=== PATIENT | female | born 1990 | race Caucasian/White ===

== ENCOUNTER 2019-04-17 07:30 | Day surgery (SDC) | payer BC ==
[2019-04-16 10:35] LABS: BLOOD UREA NITROGEN,BUN 8 mg/dL (7.0-18.0); CARBON DIOXIDE,CO2 28.4 mmol/L (21.0-32.0); CHLORIDE,CL 101 mmol/L (98-107); GLUCOSE RANDOM 103 mg/dL (74-106); SODIUM,NA 137 mmol/L (136-145)
[~2019-04-17 07:30] MED LIST: Sodium Chloride 0.9% 10 ML SDV IV PRN; Sodium Chloride 0.9% 10 ML Syringe FLUSH PRN; Sodium Chloride 0.9% 2.5 ML Syringe FLUSH PRN; ceFAZolin 2 GM in Premix Bag 1 BAG IV ONE
[2019-04-17] MEDS ORDERED: Midazolam 1 MG/ML 2 ML SDV ONE (07:37)
[2019-04-17] MEDS ORDERED: Rocuronium 100 MG/10 ML Syringe ONE (07:37)
[2019-04-17] MEDS ORDERED: Propofol 200 MG/20 ML SDV ONE (07:37)
[2019-04-17] MEDS ORDERED: fentaNYL 250 MCG/5 ML SDV ONE (07:37)
[2019-04-17] MEDS ORDERED: Ondansetron 4 MG/2 ML SDV ONE (07:37)
[2019-04-17] MEDS: Lactated Ringers 1,000 ML IV SCH ×3 (07:50→22:15)
--- NOTE | 2019-04-17 08:05 | PCM.PREANE ---
Preanesthetic Assessment - Anesthesia/Transfusion/Family Hx Anesthesia History: No Prior Anesthesia Family History of Anesthesia Reaction: No Transfusion History: No Prior Transfusion(s) - Review of Systems General: No Symptoms Pulmonary: No Symptoms Cardiovascular: No Symptoms Gastrointestinal: No Symptoms Neurological: No Symptoms Other: Reports: None - Physical Assessment NPO Status Date: 04/16/19 NPO Status Time: 21:00 Vital Signs: Last Vital Signs Temp 97.5 F 04/17/19 07:36 Pulse 91 04/17/19 07:36 Resp 20 04/17/19 07:36 BP 115/79 04/17/19 07:36 Pulse Ox 99 04/17/19 07:36 Height: 5 ft 9 in Weight: 92.079 kg ASA Class: 2 Mental Status: Alert & Oriented x3 Airway Class: Mallampati = 2 Dentition: Reports: Normal Dentition ROM/Head Extension: Full Lungs: Clear to Auscultation, Normal Respiratory Effort Cardiovascular: Regular Rate, Regular Rhythm - Lab Values: Laboratory Last Values WBC 9.41 K/uL (4.0-11.0) 04/16/19 09:52 RBC 4.76 M/uL (4.30-5.90) 04/16/19 09:52 Hgb 13.6 g/dL (12.0-16.0) 04/16/19 09:52 Hct 40.3 % (36.0-46.0) 04/16/19 09:52 MCV 84.7 fL (80.0-98.0) 04/16/19 09:52 MCH 28.6 pg (27.0-32.0) 04/16/19 09:52 MCHC 33.7 g/dL (31.0-37.0) 04/16/19 09:52 RDW Std Deviation 41.7 fl (28.0-62.0) 04/16/19 09:52 RDW Coeff of Neli 14 % (11.0-15.0) 04/16/19 09:52 Plt Count 290 K/uL (150-400) 04/16/19 09:52 MPV 9.40 fL (7.40-12.00) 04/16/19 09:52 Nucleated RBC % 0.0 /100WBC 04/16/19 09:52 Nucleated RBCs # 0 K/uL 04/16/19 09:52 Sodium 137 mmol/L (136-145) 04/16/19 09:52 Potassium 4.0 mmol/L (3.5-5.1) 04/16/19 09:52 Chloride 101 mmol/L (98-107) 04/16/19 09:52 Carbon Dioxide 28.4 mmol/L (21.0-32.0) 04/16/19 09:52 BUN 8 mg/dL (7.0-18.0) 04/16/19 09:52 Creatinine 0.8 mg/dL (0.6-1.0) 04/16/19 09:52 Est Cr Clr Drug Dosing 109.41 mL/min 04/16/19 09:52 Estimated GFR (MDRD) > 60.0 ml/min 04/16/19 09:52 Glucose 103 mg/dL (74-106) 04/16/19 09:52 Calcium 9.5 mg/dL (8.5-10.1) 04/16/19 09:52 HCG, Qual NEGATIVE (NEG) 04/16/19 09:52 Blood Type O POSITIVE 04/16/19 09:52 Antibody Screen NEGATIVE 04/16/19 09:52 - Allergies Allergies/Adverse Reactions: Allergies Allergy/AdvReac Type Severity Reaction Status Date / Time No Known Allergies Allergy Verified 04/11/19 10:42 - Blood Blood Available: No - Anesthesia Plan Pre-Op Medication Ordered: None - Acknowledgements Anesthesia Type Planned: General Anesthesia Pt an Appropriate Candidate for the Planned Anesthesia: Yes Alternatives and Risks of Anesthesia Discussed w Pt/Guardian: Yes Pt/Guardian Understands and Agrees with Anesthesia Plan: Yes PreAnesthesia Questionnaire - Past Health History Medical/Surgical History: Denies Medical/Surgical History HEENT History: Reports: None Cardiovascular History: Reports: None Respiratory History: Reports: None Gastrointestinal History: Reports: None Genitourinary History: Reports: None 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: Dysfunctional Uterine Bleeding, Musculoskeletal History: Reports: None Neurological History: Reports: None Psychiatric History: Reports: Depression Endocrine/Metabolic History: Reports: Obesity/BMI 30+ Hematologic History: Reports: None Immunologic History: Reports: None Oncologic (Cancer) History: Reports: None Dermatologic History: Reports: None - Infectious Disease History Infectious Disease History: Reports: Chicken Pox - Past Surgical History Head Surgeries/Procedures: Reports: None HEENT Surgical History: Reports: None Cardiovascular Surgical History: Reports: None Respiratory Surgical History: Reports: None GI Surgical History: Reports: None Female Surgical History: Reports: None Neurological Surgical History: Reports: None Musculoskeletal Surgical History: Reports: None Oncologic Surgical History: Reports: None Dermatological Surgical History: Reports: None - SUBSTANCE USE Smoking Status *Q: Never Smoker - HOME MEDS Home Medications: Home Meds Etonogestrel [Nexplanon] 1 device IMPLANT ONETIME 04/11/19 [History] Iron 27 mg PO DAILY 04/11/19 [History] Sertraline HCl 2,000 mg PO DAILY 04/11/19 [History] - CURRENT (IN HOUSE) MEDS Current Meds: Current Medications Lactated Ringer's (Ringers, Lactated) 1,000 mls @ 125 mls/hr IV ASDIRECTED YULIYA Last Admin: 04/17/19 07:50 Dose: 125 mls/hr Sodium Chloride (Saline Flush) 10 ml FLUSH ASDIRECTED PRN PRN Reason: Keep Vein Open Sodium Chloride (Saline Flush) 2.5 ml FLUSH ASDIRECTED PRN PRN Reason: Keep Vein Open Sodium Chloride (Normal Saline) 10 ml IV ASDIRECTED PRN PRN Reason: IV Use Discontinued Medications Fentanyl (Sublimaze) Confirm Administered Dose 250 mcg .ROUTE .STK-MED ONE Stop: 04/17/19 07:38 Cefazolin Sodium/Dextrose 2 gm (/ Premix) 50 mls @ 100 mls/hr IV ONETIME ONE Stop: 04/16/19 09:42 Lidocaine HCl (Xylocaine-Mpf 1%) Confirm Administered Dose 5 ml .ROUTE .STK-MED ONE Stop: 04/17/19 07:38 Midazolam HCl (Versed 1 Mg/Ml) Confirm Administered Dose 2 mg .ROUTE .STK-MED ONE Stop: 04/17/19 07:38 Ondansetron HCl (Zofran) Confirm Administered Dose 4 mg .ROUTE .STK-MED ONE Stop: 04/17/19 07:38 Propofol (Diprivan 20 Ml) Confirm Administered Dose 200 mg .ROUTE .STK-MED ONE Stop: 04/17/19 07:38 Rocuronium [place] (Zemuron) Confirm Administered Dose 100 mg .ROUTE .STK-MED ONE Stop: 04/17/19 07:38
[2019-04-17] MEDS ORDERED: Ondansetron 4 MG/2 ML SDV IVPUSH ONE (08:40)
[2019-04-17] MEDS ORDERED: Sodium Chloride 0.9% 20 ML ONE (08:43)
[2019-04-17] MEDS ORDERED: Dexamethasone 4 MG/ML 5 ML MDV ONE (08:50)
[2019-04-17] MEDS ORDERED: Fluorescein 5 ML Vial ONE (09:00)
[2019-04-17] MEDS ORDERED: Sugammadex Sodium 200 MG/2 ML VIAL ONE (09:12)
[2019-04-17] MEDS ORDERED: Promethazine 25 MG/ML SDV IM PRN (09:19)
[2019-04-17] MEDS ORDERED: Ketorolac 30 MG/ML SDV IVPUSH PRN (09:19)
[2019-04-17] MEDS ORDERED: Acetaminophen/oxyCODONE 325-5 MG Tab PO PRN ×2 (09:19)
[2019-04-17] MEDS ORDERED: Ketorolac 30 MG/ML SDV IVPUSH ONE (09:19)
--- NOTE | 2019-04-17 09:23 | PCM.OPNOTE ---
- General Post-Op/Procedure Note Date of Surgery/Procedure: 04/17/19 Operative Procedure(s): TVH, Cysroscopy and removal og Exponan. Pre Op Diagnosis: Bleeding Post-Op Diagnosis: Same Anesthesia Technique: General ET Tube Primary Surgeon: Brooks Ewing EBL in mLs: 100 Complications: None Condition: Good
[2019-04-17] MEDS: fentaNYL 100 MCG/2 ML SDV IVPUSH PRN ×2 (09:34→09:44)
[2019-04-17] MEDS ORDERED: Acetaminophen 1,000 MG in Premix Bag 1 BAG IV ONE (09:47)
[2019-04-17] MEDS: HYDROmorphone 2 MG/ML Syringe IVPUSH ONE ×2 (10:02→10:08)
--- NOTE | 2019-04-17 10:28 | PCM.POSTAN ---
POST ANESTHESIA ASSESSMENT - MENTAL STATUS Mental Status: Alert, Oriented - VITAL SIGNS Vital Signs: Last Vital Signs Temp 97.3 F 04/17/19 09:25 Pulse 80 04/17/19 10:14 Resp 13 04/17/19 10:14 BP 104/57 L 04/17/19 10:14 Pulse Ox 100 04/17/19 10:14 - RESPIRATORY Respiratory Status: Respiratory Rate WNL, Airway Patent, O2 Saturation Stable - CARDIOVASCULAR CV Status: Pulse Rate WNL, Blood Pressure Stable - GASTROINTESTINAL GI Status: No Symptoms - POST OP HYDRATION Hydration Status: Adequate & Stable
[2019-04-17] MEDS: Morphine 4 MG/ML Syringe IVPUSH PRN ×2 (11:20→15:03)
[2019-04-17] MEDS: Ondansetron 4 MG/2 ML SDV IVPUSH PRN ×2 (12:07→22:45)
--- NOTE | 2019-04-17 13:42 | OR ---
SURGEON: Brooks Ewing MD DATE OF PROCEDURE: PREOPERATIVE DIAGNOSES: Menometrorrhagia, dysmenorrhea. POSTOPERATIVE DIAGNOSES: Menometrorrhagia, dysmenorrhea. OPERATIONS PERFORMED: Total vaginal hysterectomy, bilateral vaginal salpingectomy preserving both ovaries, cystoscopy, and removal of Nexplanon. PRIMARY SURGEON: Brooks Ewing MD. SNOW SHOVELER: OR tech. ANESTHESIA: General endotracheal intubation. ESTIMATED BLOOD LOSS: 100 mL. COMPLICATIONS: None. FINDINGS: Uterus about 8-week size. Nexplanon in her left arm. INDICATIONS FOR SURGERY: Josephine to refer to the admit note. PROCEDURE IN DETAIL: The patient was brought to the OR, properly identified, and after adequate level of general anesthesia, the patient was placed in lithotomy, prepped and draped in sterile fashion as usual. A short weighted speculum was placed in the vagina and straight catheter was used to empty the bladder. Single-tooth tenaculum applied to the cervix and a circular incision in the vaginal mucosa around the cervix utilizing the electrocautery is done. The posterior cul-de-sac was entered with the Lopez scissors and the peritoneum and the vagina tagged with 2-0 Vicryl. Then, the short weighted speculum was placed with an extended long weighted speculum and then the uterosacral ligament identified from both sides, clamped with a curved Zeppelin, transected, and suture-ligated with 2-0 Vicryl pop-off in a Ashli fashion and held for further identification. The same thing done with the cardinal ligament and then the cervicovesical space was entered anteriorly, pushing the bladder completely away from the operative field. The broad ligament was clamped with a curved Zeppelin from both sides and transected, suture-ligated with 2-0 Vicryl pop-off. The uterine vessel was suture-ligated at this step. Next, the uterus was delivered posteriorly and the superior pedicle was clamped with 90 degree Zeppelin from both sides. The tubes included with the specimen, the ovaries preserved, and the superior pedicle tied twice with a free tie on both sides. Inspection of the operative field showed no oozing, no bleeding, and the uterosacral ligament and cardinal ligament anchored to the vagina at 3 and 9 o'clock for added vaginal support. We proceeded to close the vaginal cuff with 2-0 Vicryl interrupted [id number] suture. While we were doing that, we asked the anesthesiologist to give the patient 5 mL of fluorescein and then cystoscopy was performed. The bladder was intact. Both ureteric orifices were seen with the dye coming out from both of them. Thus, patency of both ureters verified. Satisfied with this procedure, the vaginal part of the surgery ended and then attention paid to the left arm. The area where the Nexplanon is identified and sterilized with Betadine and then small incision was done. Mosquito clamp was used to dissect the subcutaneous tissue, and then the Nexplanon is identified and removed without any problem. The small incision was closed with a Steri-Strip. After this, the procedure ended. The instrument and sponge count was correct. The patient tolerated the procedure well and went to recovery room in stable general condition. DONNA TAYLOR /[id number]
[2019-04-18 04:34] VITALS: BP 114/71; PULSE 88
[2019-04-18 06:48] LABS: BLOOD UREA NITROGEN,BUN 8 mg/dL (7.0-18.0); CARBON DIOXIDE,CO2 27.6 mmol/L (21.0-32.0); CHLORIDE,CL 105 mmol/L (98-107); GLUCOSE RANDOM 92 mg/dL (74-106); POTASSIUM,K 3.5 mmol/L (3.5-5.1); SODIUM,NA 142 mmol/L (136-145)
--- NOTE | 2019-04-18 07:04 | PCM48HPAN ---
Post Anesthesia Note - EVALUATION WITHIN 48HRS OF ANESTHETIC Vital Signs in Normal Range: Yes Patient Participated in Evaluation: Yes Respiratory Function Stable: Yes Airway Patent: Yes Cardiovascular Function Stable: Yes Hydration Status Stable: Yes Pain Control Satisfactory: Yes Nausea and Vomiting Control Satisfactory: Yes Mental Status Recovered: Yes Vital Signs: Last Vital Signs Temp 99.2 F 04/18/19 04:32 Pulse 88 04/18/19 04:32 Resp 14 04/18/19 04:32 BP 114/71 04/18/19 04:32 Pulse Ox 96 04/18/19 04:32
--- NOTE | 2019-04-18 08:24 | PCM.SURGPN ---
- General Info Date of Service: 04/18/19 POD#: 1 Functional Status: Reports: Pain Controlled - Review of Systems General: Reports: No Symptoms HEENT: Reports: No Symptoms Pulmonary: Reports: No Symptoms Cardiovascular: Reports: No Symptoms Gastrointestinal: Reports: No Symptoms Genitourinary: Reports: No Symptoms Musculoskeletal: Reports: No Symptoms Skin: Reports: No Symptoms Neurological: Reports: No Symptoms Psychiatric: Reports: No Symptoms - Patient Data Vitals - Most Recent: Last Vital Signs Temp 37.3 C 04/18/19 04:32 Pulse 88 04/18/19 04:32 Resp 14 04/18/19 04:32 BP 114/71 04/18/19 04:32 Pulse Ox 96 04/18/19 04:32 Weight - Most Recent: 92.079 kg I&O - Last 24 Hours: Intake & Output 04/17/19 04/18/19 04/18/19 22:59 06:59 14:59 Intake Total 1000 978 Output Total 1600 Balance 1000 -622 Lab Results Last 24 Hrs: Laboratory Results - last 24 hr 04/18/19 04/18/19 Range/Units 05:55 05:55 WBC 13.03 H (4.0-11.0) K/uL RBC 4.06 L (4.30-5.90) M/uL Hgb 11.3 L (12.0-16.0) g/dL Hct 34.6 L (36.0-46.0) % MCV 85.2 (80.0-98.0) fL MCH 27.8 (27.0-32.0) pg MCHC 32.7 (31.0-37.0) g/dL RDW Std Deviation 42.5 (28.0-62.0) fl RDW Coeff of Neli 14 (11.0-15.0) % Plt Count 261 (150-400) K/uL MPV 9.70 (7.40-12.00) fL Neut % (Auto) 73.3 (48.0-80.0) % Lymph % (Auto) 18.3 (16.0-40.0) % [place] % (Auto) 8.1 (0.0-15.0) % Eos % (Auto) 0.2 (0.0-7.0) % Baso % (Auto) 0.1 (0.0-1.5) % Neut # (Auto) 9.6 H (1.4-5.7) K/uL Lymph # (Auto) 2.4 (0.6-2.4) K/uL [place] # (Auto) 1.1 H (0.0-0.8) K/uL Eos # (Auto) 0.0 (0.0-0.7) K/uL Baso # (Auto) 0.0 (0.0-0.1) K/uL Nucleated RBC % 0.0 /100WBC Nucleated RBCs # 0 K/uL Sodium 142 (136-145) mmol/L Potassium 3.5 (3.5-5.1) mmol/L Chloride 105 (98-107) mmol/L Carbon Dioxide 27.6 (21.0-32.0) mmol/L BUN 8 (7.0-18.0) mg/dL Creatinine 0.7 (0.6-1.0) mg/dL Est Cr Clr Drug Dosing 125.04 mL/min Estimated GFR (MDRD) > 60.0 ml/min Glucose 92 (74-106) mg/dL Calcium 8.4 L (8.5-10.1) mg/dL Med Orders - Current: Current Medications Fentanyl (Sublimaze) 50 mcg IVPUSH Q5M PRN PRN Reason: Pain (severe 7-10) Stop: 04/18/19 08:41 Last Admin: 04/17/19 09:44 Dose: 50 mcg Lactated Ringer's (Ringers, Lactated) 1,000 mls @ 125 mls/hr IV [facility]RECTED [facility] Last Admin: 04/17/19 22:15 Dose: 125 mls/hr Ketorolac Tromethamine (Toradol) 30 mg IVPUSH Q6H PRN PRN Reason: Pain (severe 7-10) Stop: 04/22/19 09:19 Last Admin: 04/17/19 22:32 Dose: 30 mg Morphine Sulfate (Morphine) 4 mg IVPUSH Q2H PRN PRN Reason: Pain (severe 7-10) Last Admin: 04/17/19 15:03 Dose: 4 mg Ondansetron HCl (Zofran) 4 mg IVPUSH Q6H PRN PRN Reason: Nausea/Vomiting Last Admin: 04/17/19 22:45 Dose: 4 mg Oxycodone/Acetaminophen (Percocet 325-5 Mg) 1 tab PO Q4H PRN PRN Reason: Pain (moderate 4-6) Oxycodone/Acetaminophen (Percocet 325-5 Mg) 2 tab PO Q4H PRN PRN Reason: Pain (moderate 4-6) Promethazine HCl (Phenergan) 25 mg IM Q6H PRN PRN Reason: Nausea/Vomiting Sodium Chloride (Saline Flush) 10 ml FLUSH ASDIRECTED PRN PRN Reason: Keep Vein Open Sodium Chloride (Saline Flush) 2.5 ml FLUSH ASDIRECTED PRN PRN Reason: Keep Vein Open Last Admin: 04/17/19 22:10 Dose: 2.5 ml Sodium Chloride (Normal Saline) 10 ml IV ASDIRECTED PRN PRN Reason: IV Use Discontinued Medications Dexamethasone (Dexamethasone) Confirm Administered Dose 20 mg .ROUTE .STK-MED ONE Stop: 04/17/19 08:51 Fentanyl (Sublimaze) Confirm Administered Dose 250 mcg .ROUTE .STK-MED ONE Stop: 04/17/19 07:38 Fluorescein Sodium ([place]-Fluor) Confirm Administered Dose 5 ml .ROUTE .STK-MED ONE Stop: 04/17/19 09:01 Hydromorphone HCl (Dilaudid) 2 mg IVPUSH ONETIME ONE Stop: 04/17/19 09:48 Last Admin: 04/17/19 10:08 Dose: 0.4 mg Cefazolin Sodium/Dextrose 2 gm (/ Premix) 50 mls @ 100 mls/hr IV ONETIME ONE Stop: 04/16/19 09:42 Sodium Chloride (Normal Saline) Confirm Administered Dose 20 mls @ as directed .ROUTE .STK-MED ONE Stop: 04/17/19 08:44 Acetaminophen 1,000 mg/ Premix 100 mls @ 400 mls/hr IV NOW ONE Stop: 04/17/19 10:01 Last Admin: 04/17/19 09:57 Dose: 400 mls/hr Acetaminophen (Ofirmev) Confirm Administered Dose 100 mls @ as directed .ROUTE .STK-MED ONE Stop: 04/17/19 09:55 Ketorolac Tromethamine (Toradol) 30 mg IVPUSH ONETIME ONE Stop: 04/17/19 09:20 Last Admin: 04/17/19 09:39 Dose: 30 mg Lidocaine HCl (Xylocaine-Mpf 1%) Confirm Administered Dose 5 ml .ROUTE .STK-MED ONE Stop: 04/17/19 07:38 Midazolam HCl (Versed 1 Mg/Ml) Confirm Administered Dose 2 mg .ROUTE .STK-MED ONE Stop: 04/17/19 07:38 Ondansetron HCl (Zofran) Confirm Administered Dose 4 mg .ROUTE .STK-MED ONE Stop: 04/17/19 07:38 Ondansetron HCl (Zofran) 4 mg IVPUSH ONETIME ONE Stop: 04/17/19 08:41 Propofol (Diprivan 20 Ml) Confirm Administered Dose 200 mg .ROUTE .STK-MED ONE Stop: 04/17/19 07:38 Rocuronium [place] (Zemuron) Confirm Administered Dose 100 mg .ROUTE .STK-MED ONE Stop: 04/17/19 07:38 Sugammadex Sodium ([place]) Confirm Administered Dose 200 mg .ROUTE .STK-MED ONE Stop: 04/17/19 09:13 - Exam Wound/Incisions: Healing Well General: Alert, Oriented HEENT: Pupils Equal Neck: Supple Lungs: Clear to Auscultation, Normal Respiratory Effort Cardiovascular: Regular Rate, Regular Rhythm GI/Abdominal Exam: Normal Bowel Sounds, Soft, Non-Tender, No Organomegaly, No Distention, No Abnormal Bruit, No Mass, Pelvis Stable Extremities: Normal Inspection, Normal Range of Motion, Non-Tender, No Pedal Edema, Normal Capillary Refill Skin: Warm, Dry, Intact Neurological: No New Focal Deficit Psy/Mental Status: Alert, Normal Affect, Normal Mood Sepsis Event Note - Evaluation Sepsis Screening Result: No Definite Risk - Focused Exam Vital Signs: Vital Signs Temp Pulse Resp BP Pulse Ox 04/18/19 04:32 37.3 C 88 14 114/71 96 04/18/19 00:42 37.0 C 90 14 117/64 94 L 04/17/19 23:51 37.4 C 04/17/19 23:00 86 115/61 94 L 04/17/19 22:41 37.5 C 86 12 121/78 94 L Date Exam was Performed: 04/18/19 Time Exam was Performed: 08:22 - Problem List Review Problem List Initiated/Reviewed/Updated: Yes - My Orders Last 24 Hours: Active Orders 24 hr Category Date Time Status Patient Status [ADT] Routine ADT 04/17/19 09:19 Active Antiembolic Devices [RC] PER UNIT ROUTINE Care 04/17/19 09:20 Active Notify Provider Vital Signs [RC] ASDIRECTED Care 04/17/19 09:19 Active Oxygen Therapy [RC] ASDIRECTED Care 04/17/19 09:19 Active RT Incentive Spirometry [RC] Q2HWA Care 04/17/19 09:19 Active Up With Assistance [RC] PER UNIT ROUTINE Care 04/17/19 09:19 Active Up ad Deb [RC] PER UNIT ROUTINE Care 04/17/19 09:19 Active Regular Diet [DIET] Diet 04/17/19 Lunch Active Acetaminophen/oxyCODONE [Percocet 325-5 MG] Med 04/17/19 09:19 Active 1 tab PO Q4H PRN Acetaminophen/oxyCODONE [Percocet 325-5 MG] Med 04/17/19 09:19 Active 2 tab PO Q4H PRN Ketorolac [Toradol] Med 04/17/19 09:19 Active 30 mg IVPUSH Q6H PRN Morphine Med 04/17/19 09:19 Active 4 mg IVPUSH Q2H PRN Ondansetron [Zofran] Med 04/17/19 09:19 Active 4 mg IVPUSH Q6H PRN Promethazine [Phenergan] Med 04/17/19 09:19 Active 25 mg IM Q6H PRN fentaNYL [Sublimaze] Med 04/17/19 08:40 Active 50 mcg IVPUSH Q5M PRN Peripheral IV Discontinue [OM.PC] Routine Oth 04/17/19 09:19 Ordered Sequential Compression Device [OM.PC] Per Unit Routine Oth 04/17/19 09:19 Ordered Resuscitation Status Routine Resus Stat 04/17/19 09:19 Ordered Medication Orders Fentanyl (Sublimaze) 50 mcg IVPUSH Q5M PRN PRN Reason: Pain (severe 7-10) Stop: 04/18/19 08:41 Last Admin: 04/17/19 09:44 Dose: 50 mcg Admin: 04/17/19 09:34 Dose: 50 mcg Lactated Ringer's (Ringers, Lactated) 1,000 mls @ 125 mls/hr IV ASDIRECTED [facility] Last Admin: 04/17/19 22:15 Dose: 125 mls/hr Infusion: 04/17/19 19:04 Dose: 125 mls/hr Admin: 04/17/19 11:04 Dose: 125 mls/hr Infusion: 04/17/19 11:04 Dose: 125 mls/hr Admin: 04/17/19 07:50 Dose: 125 mls/hr Ketorolac Tromethamine (Toradol) 30 mg IVPUSH Q6H PRN PRN Reason: Pain (severe 7-10) Stop: 04/22/19 09:19 Last Admin: 04/17/19 22:32 Dose: 30 mg Morphine Sulfate (Morphine) 4 mg IVPUSH Q2H PRN PRN Reason: Pain (severe 7-10) Last Admin: 04/17/19 15:03 Dose: 4 mg Admin: 04/17/19 11:20 Dose: 4 mg Ondansetron HCl (Zofran) 4 mg IVPUSH Q6H PRN PRN Reason: Nausea/Vomiting Last Admin: 04/17/19 22:45 Dose: 4 mg Admin: 04/17/19 12:07 Dose: 4 mg Oxycodone/Acetaminophen (Percocet 325-5 Mg) 1 tab PO Q4H PRN PRN Reason: Pain (moderate 4-6) Oxycodone/Acetaminophen (Percocet 325-5 Mg) 2 tab PO Q4H PRN PRN Reason: Pain (moderate 4-6) Promethazine HCl (Phenergan) 25 mg IM Q6H PRN PRN Reason: Nausea/Vomiting Sodium Chloride (Saline Flush) 10 ml FLUSH ASDIRECTED PRN PRN Reason: Keep Vein Open Sodium Chloride (Saline Flush) 2.5 ml FLUSH ASDIRECTED PRN PRN Reason: Keep Vein Open Last Admin: 04/17/19 22:10 Dose: 2.5 ml Sodium Chloride (Normal Saline) 10 ml IV ASDIRECTED PRN PRN Reason: IV Use - Assessment Assessment (Free Text/Narrative):: Status post vaginal hysterectomy postoperative day #1 the patient doing well ambulatory voiding without any problem on regular diet minimum vaginal bleeding had lab work is within normal limits - Plan Plan (Free Text/Narrative):: Running to discharge the patient home today the postvasectomy instruction is given prescription for Narco 5/325 is given to the patient for postoperative pain there is no restriction on her diet she is to come to the office 1 week or day of her discharge for later postoperative examination
== END 2019-04-18 09:20 | disposition home or self-care (01) ==
LOC: MW.SDS 07:30 → MW.OB 09:56 → MW.SDS 04-18 09:20
PROVIDERS: ATTEND Obstetrics & Gynecology
DX: N72 Inflammatory disease of cervix uteri (principal); N87.9 Dysplasia of cervix uteri, unspecified; N83.8 Other noninflammatory disorders of ovary, fallopian tube and broad ligament; F32.9 Major depressive disorder, single episode, unspecified; E66.9 Obesity, unspecified; Z68.30 Body mass index [BMI] 30.0-30.9, adult; Z79.899 Other long term (current) drug therapy
CPT/HCPCS: 11982; 36415; 58262; 80048; 84703; 85025; 85027; 86850; 86900; 86901; 88307; J0131; J1100; J1170; J1885; J2001; J2250; J2270; J2405; J2704; J3010; J3490; J7120; 00944

== ENCOUNTER 2020-08-04 19:28 | Emergency (ER) | payer BC ==
--- NOTE | 2020-08-04 19:53 | EDM.PDOC ---
ED HPI GENERAL MEDICAL PROBLEM - General Chief Complaint: Gastrointestinal Problem Stated Complaint: UNABLE TO KEEP ANYONE DOWN Time Seen by Provider: 08/04/20 19:39 Source of Information: Reports: Patient History Limitations: Reports: No Limitations - History of Present Illness INITIAL COMMENTS - FREE TEXT/NARRATIVE: HISTORY AND PHYSICAL: History of present illness: Patient is a 30-year-old female who presents to the emergency room with complaints of nausea, vomiting and diarrhea since 7 AM this morning. She is concerned she may be dehydrated as she has not been able to keep any food or fluids down. Patient denies any fever, chills, headache, change in vision, syncope or near syncope. Denies any chest pain, back pain, shortness of breath or cough. Denies any abdominal pain, constipation or dysuria. No concern for or STI. Has not noted any blood in urine or stool. States no one else in the house has been ill. No recent travel. No recent antibiotic use. Review of systems: As per history of present illness and below otherwise all systems reviewed and negative. Past medical history: As per history of present illness and as reviewed below otherwise noncontributory. Surgical history: As per history of present illness and as reviewed below otherwise noncontributory. Social history: See social history for further information Family history: As per history of present illness and as reviewed below otherwise noncontributory. Physical exam: General: Well developed and well nourished. Alert and orientated x 3. Nontoxic in appearance and in no acute distress. Vital signs are stable and have been reviewed by me. Nursing notes were reviewed. HEENT: Atraumatic, normocephalic, pupils equal and reactive bilaterally, negative for conjunctival pallor or scleral icterus, mucous membranes moist, TMs normal bilaterally, throat clear, neck supple, nontender, trachea midline. No drooling or trismus noted. No meningeal signs. No hot potato voice noted. Lungs: Clear to auscultation bilaterally. No wheezes, rales, or rhonchi. Chest nontender. Normal work of breathing, no accessory muscles used. Heart: S1S2, regular rate and rhythm without overt murmur, gallops, or rubs. No JVD. No peripheral edema Abdomen: Soft, nondistended, nontender. Normoactive bowel sounds. Negative for masses or costovertebral tenderness. Skin: Intact, warm, dry. No lesions or rashes noted. Hematologic: No petechiae or purpra. Mucosa appropriate color and normal nail bed color and refill. Extremities: Atraumatic, moves all extremities per self without difficulty or deficits, negative for cords or calf pain. Neurovascular unremarkable. Neuro: Awake, alert, oriented. Cranial nerves II through XII unremarkable. Cerebellum unremarkable. Motor and sensory unremarkable throughout. Exam nonfocal. Psychiatric: Mood and affect are appropriate. Normal thought process. Answering questions appropriately. Notes: *This patient was seen and evaluated during the 2019 SARS-CoV-2 novel coronavirus pandemic period. Community viral transmission is ongoing at time of this encounter and the emergency department is operating under pandemic response procedures. I have talked with the patient about today's findings, in addition to providing specific details for plan of care. We discussed her slightly elevated WBC, she denies any abdominal pain or tenderness and feels improved after medications. PO challenge; patient was able to keep fluids down. Reassessment at the time of disposition demonstrates that the patient is in no acute distress. The patient is stable for discharge, counseling was provided and we discussed in great detail signs and symptoms that would prompt them to return to the Emergency Department. Medication, follow up and supportive care measures were reviewed and discussed. Voices understanding and is agreeable to plan of care. Denies any further questions or concerns at this time. Diagnostics: CBC, CMP, UA, urine , lipase Therapeutics: IV fluid, Zofran Prescription: Zofran Impression: Gastroenteritis Plan: 1. You were evaluated today on an emergent basis. Your symptoms are likely viral. Please try to drink small frequent sips of fluids to prevent dehydration. [place] diet and advance as tolerated (bananas, rice, toast, applesauce, etc..) 2. You can alternate Tylenol and ibuprofen as needed for pain and fever ma nagement. Zofran as needed for nausea management. 3. We encourage you to follow up with your primary care provider and/or recommended specialist in the next few days for re-evaluation and further care /management. 4. If your symptoms should worsen, new symptoms develop or any of the signs and symptoms we discussed should arise please return to the emergency room or call 911 (if needed). Definitive disposition and diagnosis as appropriate pending reevaluation and review of above. Onset: Today Location: Reports: Abdomen Abdomen Pain Score (Numeric/FACES): 8 - Related Data Allergies Allergy/AdvReac Type Severity Reaction Status Date / Time No Known Allergies Allergy Verified 08/04/20 20:40 Home Meds: Home Meds Sertraline HCl 2,000 mg PO DAILY 04/11/19 [History] Ondansetron [Zofran ODT] 4 mg PO Q6H PRN #8 tab.dis 08/04/20 [Rx] Past Medical History - Past Health History Medical/Surgical History: Denies Medical/Surgical History HEENT History: Reports: None Cardiovascular History: Reports: None Respiratory History: Reports: None Gastrointestinal History: Reports: None Genitourinary History: Reports: None [employer] History: Reports: Dysfunctional Uterine Bleeding, Musculoskeletal History: Reports: None Neurological History: Reports: None Psychiatric History: Reports: Depression Endocrine/Metabolic History: Reports: Obesity/BMI 30+ Hematologic History: Reports: None Immunologic History: Reports: None Oncologic (Cancer) History: Reports: None Dermatologic History: Reports: None - Infectious Disease History Infectious Disease History: Reports: Chicken Pox - Past Surgical History Head Surgeries/Procedures: Reports: None HEENT Surgical History: Reports: None Cardiovascular Surgical History: Reports: None Respiratory Surgical History: Reports: None GI Surgical History: Reports: None Female Surgical History: Reports: None Neurological Surgical History: Reports: None Musculoskeletal Surgical History: Reports: None Oncologic Surgical History: Reports: None Dermatological Surgical History: Reports: None Social & Family History - Family History HEENT: Reports: Glaucoma Respiratory: Reports: COPD, Sleep Apnea GI: Reports: Diverticulitis, Hepatitis Musculoskeletal: Reports: Arthritis Neurological: Reports: Migraines Endocrine/Metabolic: Reports: Diabetes, type II Oncologic: Reports: Breast, Prostate ED ROS GENERAL - Review of Systems Review Of Systems: Comprehensive ROS is negative, except as noted in HPI. ED EXAM, GI/ABD - Physical Exam Exam: See Below (See dictation) Course - Vital Signs Last Recorded V/S: Last Vital Signs Temp 97.6 F 08/04/20 19:55 Pulse 104 H 08/04/20 19:55 Resp 18 08/04/20 19:55 BP 114/76 08/04/20 19:55 Pulse Ox 98 08/04/20 19:55 - Orders/Labs/Meds Orders: Active Orders 24 hr Category Date Time Status Communication Order [RC] STAT Care 08/04/20 20:53 Ordered Sodium Chloride 0.9% [Normal Saline] 1,000 ml Med 08/04/20 19:56 Active IV STAT Medication Orders Sodium Chloride (Normal Saline) 1,000 mls @ 999 mls/hr IV STAT ONE Stop: 08/04/20 20:56 Last Admin: 08/04/20 20:06 Dose: 999 mls/hr Documented by: GALINDO Labs: Laboratory Tests 08/04/20 08/04/20 08/04/20 Range/Units 20:00 20:00 20:35 WBC 14.43 H (4.0-11.0) K/uL RBC 5.35 (4.30-5.90) M/uL Hgb 15.5 (12.0-16.0) g/dL Hct 45.7 (36.0-46.0) % MCV 85.4 (80.0-98.0) fL MCH 29.0 (27.0-32.0) pg MCHC 33.9 (31.0-37.0) g/dL RDW Std Deviation 42.2 (28.0-62.0) fl RDW Coeff of Neli 14 (11.0-15.0) % Plt Count 334 (150-400) K/uL MPV 9.90 (7.40-12.00) fL Neut % (Auto) 93.8 H (48.0-80.0) % Lymph % (Auto) 3.1 L (16.0-40.0) % [place] % (Auto) 2.8 (0.0-15.0) % Eos % (Auto) 0.2 (0.0-7.0) % Baso % (Auto) 0.1 (0.0-1.5) % Neut # (Auto) 13.5 H (1.4-5.7) K/uL Lymph # (Auto) 0.5 L (0.6-2.4) K/uL [place] # (Auto) 0.4 (0.0-0.8) K/uL Eos # (Auto) 0.0 (0.0-0.7) K/uL Baso # (Auto) 0.0 (0.0-0.1) K/uL Nucleated RBC % 0.0 /100WBC Nucleated RBCs # 0 K/uL Sodium 137 (136-145) mmol/L Potassium 4.0 (3.5-5.1) mmol/L Chloride 101 (98-107) mmol/L Carbon Dioxide 22.7 (21.0-32.0) mmol/L BUN 19 H (7.0-18.0) mg/dL Creatinine 0.8 (0.6-1.0) mg/dL Est Cr Clr Drug Dosing TNP Estimated GFR (MDRD) > 60.0 ml/min Glucose 126 H (74-106) mg/dL Calcium 8.8 (8.5-10.1) mg/dL Total Bilirubin 0.8 (0.2-1.0) mg/dL AST 20 (15-37) IU/L ALT 24 (14-63) IU/L Alkaline Phosphatase 77 (46-116) U/L Total Protein 7.9 (6.4-8.2) g/dL Albumin 3.8 (3.4-5.0) g/dL Globulin 4.1 H (2.6-4.0) g/dL Albumin/Globulin Ratio 0.9 (0.9-1.6) Lipase 68 L (73-393) U/L Urine Color YELLOW Urine Appearance CLEAR Urine pH 5.5 (5.0-8.0) Ur Specific [place] >= 1.030 (1.001-1.035) Urine Protein NEGATIVE (NEGATIVE) mg/dL Urine Glucose (UA) NEGATIVE (NEGATIVE) mg/dL Urine Ketones 15 H (NEGATIVE) mg/dL Urine Occult Blood NEGATIVE (NEGATIVE) Urine Nitrite NEGATIVE (NEGATIVE) Urine Bilirubin NEGATIVE (NEGATIVE) Urine Urobilinogen 0.2 (<2.0) EU/dL Ur Leukocyte Esterase NEGATIVE (NEGATIVE) Urine HCG, Qual (NEGATIVE) 08/04/20 Range/Units 20:35 WBC (4.0-11.0) K/uL RBC (4.30-5.90) M/uL Hgb (12.0-16.0) g/dL Hct (36.0-46.0) % MCV (80.0-98.0) fL MCH (27.0-32.0) pg MCHC (31.0-37.0) g/dL RDW Std Deviation (28.0-62.0) fl RDW Coeff of Neli (11.0-15.0) % Plt Count (150-400) K/uL MPV (7.40-12.00) fL Neut % (Auto) (48.0-80.0) % Lymph % (Auto) (16.0-40.0) % [place] % (Auto) (0.0-15.0) % Eos % (Auto) (0.0-7.0) % Baso % (Auto) (0.0-1.5) % Neut # (Auto) (1.4-5.7) K/uL Lymph # (Auto) (0.6-2.4) K/uL [place] # (Auto) (0.0-0.8) K/uL Eos # (Auto) (0.0-0.7) K/uL Baso # (Auto) (0.0-0.1) K/uL Nucleated RBC % /100WBC Nucleated RBCs # K/uL Sodium (136-145) mmol/L Potassium (3.5-5.1) mmol/L Chloride (98-107) mmol/L Carbon Dioxide (21.0-32.0) mmol/L BUN (7.0-18.0) mg/dL Creatinine (0.6-1.0) mg/dL Est Cr Clr Drug Dosing Estimated GFR (MDRD) ml/min Glucose (74-106) mg/dL Calcium (8.5-10.1) mg/dL Total Bilirubin (0.2-1.0) mg/dL AST (15-37) IU/L ALT (14-63) IU/L Alkaline Phosphatase (46-116) U/L Total Protein (6.4-8.2) g/dL Albumin (3.4-5.0) g/dL Globulin (2.6-4.0) g/dL Albumin/Globulin Ratio (0.9-1.6) Lipase (73-393) U/L Urine Color Urine Appearance Urine pH (5.0-8.0) Ur Specific [place] (1.001-1.035) Urine Protein (NEGATIVE) mg/dL Urine Glucose (UA) (NEGATIVE) mg/dL Urine Ketones (NEGATIVE) mg/dL Urine Occult Blood (NEGATIVE) Urine Nitrite (NEGATIVE) Urine Bilirubin (NEGATIVE) Urine Urobilinogen (<2.0) EU/dL Ur Leukocyte Esterase (NEGATIVE) Urine HCG, Qual NEGATIVE (NEGATIVE) Meds: Medications Generic Name Dose Route Start Last Admin Trade Name Freq PRN Reason Stop Dose Admin Sodium Chloride 1,000 mls @ 999 mls/hr 08/04/20 19:56 08/04/20 20:06 Normal Saline IV 08/04/20 20:56 999 mls/hr STAT ONE Administration Discontinued Medications Generic Name Dose Route Start Last Admin Trade Name Freq PRN Reason Stop Dose Admin Ondansetron HCl 4 mg 08/04/20 19:56 08/04/20 20:06 Ondansetron 4 Mg/2 Ml Sdv IVPUSH 08/04/20 19:57 4 mg ONETIME ONE Administration Departure - Departure Time of Disposition: 20:56 Disposition: Home, Self-Care 01 Clinical Impression: Gastroenteritis - Discharge Information Prescriptions: Ondansetron [Zofran ODT] 4 mg PO Q6H PRN #8 tab.dis PRN Reason: Nausea Instructions: Viral Gastroenteritis, Adult, [id number] Referrals: Lizette Cole DO [Primary Care Provider] - Forms: ED Department Discharge Additional Instructions: The following information is given to patients seen in the emergency department who are being discharged to home. This information is to outline your options for follow-up care. We provide all patients seen in our emergency department with a follow-up referral. The need for follow-up, as well as the timing and circumstances, are variable depending upon the specifics of your emergency department visit. If you don't have a primary care physician on staff, we will provide you with a referral. We always advise you to contact your personal physician following an emergency department visit to inform them of the circumstance of the visit and for follow-up with them and/or the need for any referrals to a consulting specialist. The emergency department will also refer you to a specialist when appropriate. This referral assures that you have the opportunity for follow-up care with a specialist. All of these measure are taken in an effort to provide you with optimal care, which includes your follow-up. Under all circumstances we always encourage you to contact your private physician who remains a resource for coordinating your care. When calling for fo llow-up care, please make the office aware that this follow-up is from your recent emergency room visit. If for any reason you are refused follow-up, please contact the [facility] Emergency Department at and asked to speak to the emergency department charge nurse. [facility] [address] [place] [address] [facility] [address] [place] [id number] Thank you for choosing the [facility] emergency department in [place] for your medical needs today. It was a pleasure caring for you. Today you were seen in the emergency department for nausea, vomiting, and diarrhea. 1. You were evaluated today on an emergent basis. Your symptoms are likely viral. Please try to drink small frequent sips of fluids to prevent dehydration. [place] diet and advance as tolerated (bananas, rice, toast, applesauce, etc..) 2. You can alternate Tylenol and ibuprofen as needed for pain and fever management. Zofran as needed for nausea management. 3. We encourage you to follow up with your primary care provider and/or recommended specialist in the next few days for re-evaluation and further care/management. 4. If your symptoms should worsen, new symptoms develop or any of the signs and symptoms we discussed should arise please return to the emergency room or call 911 (if needed). Sepsis Event Note (ED) - Focused Exam Vital Signs: Vital Signs Temp Pulse Resp BP Pulse Ox 08/04/20 19:55 97.6 F 104 H 18 114/76 98 - My Orders Last 24 Hours: My Active Orders 08/04/20 19:56 Sodium Chloride 0.9% [Normal Saline] 1,000 ml IV STAT 08/04/20 20:53 Communication Order [RC] STAT - Assessment/Plan Last 24 Hours: My Active Orders 08/04/20 19:56 Sodium Chloride 0.9% [Normal Saline] 1,000 ml IV STAT 08/04/20 20:53 Communication Order [RC] STAT
[2020-08-04] MEDS ORDERED: Sodium Chloride 0.9% 1,000 ML IV ONE (19:56)
[2020-08-04] MEDS ORDERED: Ondansetron 4 MG/2 ML SDV IVPUSH ONE (19:56)
[2020-08-04 20:44] LABS: BLOOD UREA NITROGEN,BUN 19 mg/dL (7.0-18.0); CARBON DIOXIDE,CO2 22.7 mmol/L (21.0-32.0); CHLORIDE,CL 101 mmol/L (98-107); GLUCOSE RANDOM 126 mg/dL (74-106); LIPASE 68 U/L (73-393); SODIUM,NA 137 mmol/L (136-145)
[2020-08-04 21:38] VITALS: BP 104/68
[2020-08-04 21:39] VITALS: PULSE 96
== END 2020-08-04 21:39 | disposition home or self-care (01) ==
LOC: MW.ED 19:28
DX: K52.9 Noninfective gastroenteritis and colitis, unspecified (principal); D72.829 Elevated white blood cell count, unspecified; E66.9 Obesity, unspecified
CPT/HCPCS: 80053; 81003; 81025; 83690; 85025; 96374; 99284; J2405; J7030; 99283

== ENCOUNTER 2021-06-02 06:31 | Day surgery (SDC) | payer BC, MEDICAID ==
[2021-06-02] MEDS ORDERED: Octyl 2-Cyanoacrylate 1 Tube ONE (07:25)
[2021-06-02] MEDS ORDERED: Propofol 200 MG/20 ML SDV ONE ×2 (07:28→08:16)
[2021-06-02] MEDS ORDERED: fentaNYL 250 MCG/5 ML SDV ONE (07:29)
[2021-06-02] MEDS ORDERED: fentaNYL 100 MCG/2 ML SDV ONE (08:32)
[2021-06-02] MEDS ORDERED: Dexamethasone 4 MG/ML 5 ML MDV ONE (08:36)
[2021-06-02] MEDS ORDERED: Ondansetron 4 MG/2 ML SDV ONE (08:36)
[2021-06-02] MEDS ORDERED: Ketorolac 30 MG/ML SDV ONE (08:36)
[2021-06-02] MEDS ORDERED: Glycopyrrolate 0.2 MG/ML SDV ONE (08:36)
[2021-06-02] MEDS ORDERED: Rocuronium Bromide 50 MG/5 ML Syringe ONE (08:36)
[2021-06-02] MEDS ORDERED: ePHEDrine 50 MG/ML SDV ONE (08:36)
[2021-06-02] MEDS ORDERED: Sugammadex Sodium 200 MG/2 ML VIAL ONE (08:36)
[2021-06-02] MEDS ORDERED: HYDROmorphone 1 MG/ML Syringe ONE (09:09)
[2021-06-02] MEDS ORDERED: fentaNYL 100 MCG/2 ML SDV IVPUSH PRN (09:11)
[2021-06-02] MEDS ORDERED: Naloxone 0.4 MG/ML SDV IVPUSH PRN (09:11)
[2021-06-02] MEDS ORDERED: Ondansetron 4 MG/2 ML SDV IVPUSH PRN (09:11)
[2021-06-02] MEDS ORDERED: Albuterol 0.083% 2.5 MG/3 ML Neb Soln NEB PRN (09:11)
[2021-06-02] MEDS ORDERED: Metoclopramide 10 MG/2 ML SDV IVPUSH PRN (09:11)
[2021-06-02] MEDS ORDERED: HYDROmorphone 1 MG/ML Syringe IVPUSH PRN (09:11)
[2021-06-02] MEDS ORDERED: Morphine 4 MG/ML VIAL IVPUSH PRN (09:11)
[2021-06-02] MEDS ORDERED: Acetaminophen/HYDROcodone 325-5 MG Tab PO PRN (10:38)
[2021-06-02 11:21] VITALS: BP 121/77; PULSE 66
== END 2021-06-02 11:38 | disposition home or self-care (01) ==
LOC: MW.SDS 06:31
PROVIDERS: ATTEND Obstetrics & Gynecology
DX: D27.0 Benign neoplasm of right ovary (principal); N99.4 Postprocedural pelvic peritoneal adhesions; F32.A Depression, unspecified; Z90.710 Acquired absence of both cervix and uterus; Z79.899 Other long term (current) drug therapy; Z98.890 Other specified postprocedural states; Z87.891 Personal history of nicotine dependence
CPT/HCPCS: 58661; A9270; J0131; J1100; J1885; J2704; J3010; J3490; J7030; 00840; J2405

== ENCOUNTER 2021-06-07 18:36 | Emergency (ER) | payer MEDICAID ==
[2021-06-07] MEDS ORDERED: Sodium Chloride 0.9% 1,000 ML IV ONE (18:45)
[2021-06-07] MEDS ORDERED: Iopamidol 755 MG/ML 500 ML Multipack Bottle IVPUSH STA (20:07)
[2021-06-07 20:13] LABS: BLOOD UREA NITROGEN,BUN 9 mg/dL (7.0-18.0); CHLORIDE,CL 102 mmol/L (98-107); GLUCOSE RANDOM 97 mg/dL (74-106); POTASSIUM,K 3.9 mmol/L (3.5-5.1); SODIUM,NA 140 mmol/L (136-145)
[2021-06-07] MEDS ORDERED: traMADol 50 MG Tab PO ONE (21:05)
[2021-06-07 21:39] VITALS: BP 110/74; PULSE 94
== END 2021-06-07 21:40 | disposition home or self-care (01) ==
LOC: MW.ED 18:36
DX: R55 Syncope and collapse (principal); G89.18 Other acute postprocedural pain; R10.32 Left lower quadrant pain
CPT/HCPCS: 36415; 70450; 71045; 74177; 80053; 81003; 85025; 93005; 99285; A9270; J7030; Q9967

== ENCOUNTER 2023-01-03 08:31 | Emergency (ER) | payer BC ==
[2023-01-03] MEDS ORDERED: Ibuprofen 600 MG Tab PO ONE (08:49)
[2023-01-03] MEDS ORDERED: Morphine 15 MG Tab PO ONE (08:49)
[2023-01-03] MEDS ORDERED: Acetaminophen 500 MG Tab PO ONE (08:49)
[2023-01-03 10:21] VITALS: BP 121/80; PULSE 75
== END 2023-01-03 10:20 | disposition home or self-care (01) ==
LOC: MW.ED 08:31
DX: S93.402A Sprain of unspecified ligament of left ankle, initial encounter (principal); X50.1XXA Overexertion from prolonged static or awkward postures, initial encounter
CPT/HCPCS: 73610; 99283; A9270